=== PATIENT | female | born 1945 | race Caucasian/White ===

== ENCOUNTER 2019-03-27 11:09 | Emergency (ER) | payer MEDICARE ==
[2019-03-27] MEDS ORDERED: Acetaminophen TAB* 325 MG PO ONE (11:19)
[2019-03-27 13:34] VITALS: BP 142/84
--- NOTE | 2019-03-28 06:39 | ED ---
Adult Trauma - HPI Summary HPI Summary: This patient is an otherwise healthy 73-year-old female presenting to the ED after a fall approximately 1 hour YARDER. She states she was walking her dog when she slipped on a wet patch and fell down onto her right side into her bilateral knees. She is currently complaining of bilateral knee pain, right arm pain is notably to the wrist into the upper arm without a bone involvement. Denies hitting her head. Denies any CP or SOB. She desires the use of blood thinners. She states she was able to ambulate following the fall. Denies any signs of trauma. Denies any hip pain. - History of Current Complaint Chief Complaint: EDFall Stated Complaint: FALL PER PT Time Seen by Provider: 03/27/19 11:14 Hx Obtained From: Patient ?: No Mechanism of Injury: Fall Ambulatory at the Scene: Yes Onset/Duration: Started Minutes Ago Onset of Pain: Immediate Onset Severity: Mild Current Severity: Mild Pain Intensity: 3 Pain Scale Used: 0-10 Numeric Location: Extremities Character: Aching Alleviating Factor(s): Nothing Associated Signs & Symptoms: Positive: Negative - Additional Pertinent History Primary Care Physician: BRYSON - Allergy/Home Medications Allergies/Adverse Reactions: Allergies Allergy/AdvReac Type Severity Reaction Status Date / Time Adhesive Tape [Paper Tape] Allergy Unknown Rash Verified 03/27/19 11:10 dabigatran etexilate Allergy Unknown Verified 03/27/19 11:10 [From Pradaxa] Reaction Details latex Allergy Rash And Verified 03/27/19 11:10 Itching lisinopril Allergy Dizziness Verified 03/27/19 11:10 Home Medications: Home Medications Furosemide TAB* [Lasix TAB*] 40 mg PO DAILY 03/27/19 [History Confirmed 03/27/19 ] Warfarin TAB(*) [Coumadin TAB(*)] 2.5 - 5 mg PO DAILY 03/27/19 [History Confirmed 03/27/19] PMH/Surg Hx/FS Hx/Imm Hx Previously Healthy: Yes Endocrine/Hematology History: Reports: Hx Anticoagulant Therapy, Hx Diabetes, Hx Thyroid Disease Cardiovascular History: Reports: Hx Hypercholesterolemia, Hx Hypertension, Hx Valvular Heart Disease, Other Cardiovascular Problems/Disorders - 2011 BY [facility]; 04/10 VALVE REPAIR AND REPLACEMENT Denies: Hx Pacemaker/ICD Respiratory History: Reports: Hx Chronic Obstructive Pulmonary Disease (COPD) Denies: Hx Asthma GI History: Reports: Hx Gall Bladder Disease - removed 8 years ago History: Denies: Hx Renal Disease Musculoskeletal History: Reports: Hx Arthritis - HANDS Sensory History: Reports: Hx Cataracts - left eye, Hx Contacts or Glasses Denies: Hx Hearing Aid Opthamlomology History: Reports: Hx Cataracts - left eye, Hx Contacts or Glasses Neurological History: Denies: Hx Dementia, Hx Seizures Psychiatric History: Denies: Hx Substance Abuse - Surgical History Surgery Procedure, Year, and Place: [place] [facility]. [facility]. 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 CATARACT RIGHT EYE WITH LENS IMPLANT [place] Hx Anesthesia Reactions: No - Immunization History Hx Pertussis Vaccination: No Immunizations Up to Date: Yes Infectious Disease History: No Infectious Disease History: Denies: Hx Hepatitis, Hx Human Immunodeficiency Virus (HIV), Traveled Outside the [place] in Last 30 Days - Family History Known Family History: Positive: Non-Contributory - Social History Occupation: Unemployed Lives: With Family Alcohol Use: None Hx Substance Use: No Substance Use Type: Reports: None Hx Tobacco Use: No Smoking Status (MU): Never Smoked Tobacco Review of Systems Negative: Fever, Chills, Fatigue, Skin Diaphoresis Negative: Palpitations, Chest Pain Negative: Shortness Of Breath, Cough Genitourinary: Negative Positive: no symptoms reported, see HPI Positive: Arthralgia - bilateral knees and R wrist/R humeral pain. Negative: Myalgia Skin: Negative Neurological: Negative All Other Systems Reviewed And Are Negative: Yes Physical Exam Triage Information Reviewed: Yes Vital Signs On Initial Exam: Initial Vitals Temp Pulse Resp BP Pulse Ox 97.6 F 72 20 145/102 99 03/27/19 11:10 03/27/19 11:10 03/27/19 11:10 03/27/19 11:10 03/27/19 11:10 Vital Signs Reviewed: Yes Appearance: Positive: Well-Appearing, Well-Nourished Skin: Positive: Skin Color Reflects Adequate Perfusion Head/Face: Positive: Normal Head/Face Inspection Eyes: Positive: EOMI, TIMUR, Conjunctiva Clear Neck: Positive: Supple, No Lymphadenopathy Respiratory/Lung Sounds: Positive: Clear to Auscultation, Breath Sounds Present Cardiovascular: Positive: Pulses are Symmetrical in both Upper and Lower Extremities Musculoskeletal: Positive: Pain @ - bilateral knees and R wrist/R humeral pain Neurological: Positive: Speech Normal Psychiatric: Positive: Affect/Mood Appropriate AVPU Assessment: Alert - Is Diagnostics - Vital Signs Vital Signs Temp Pulse Resp BP Pulse Ox 03/27/19 13:33 97.8 F 76 16 142/84 98 03/27/19 11:10 97.6 F 72 20 145/102 99 - Laboratory Lab Statement: Any lab studies that have been ordered have been reviewed, and results considered in the medical decision making process. Adult Trauma Course/Dx - Course Course Of Treatment: On arrival into the ED, the patient appears well, however is complaining of bilateral knee pain, right wrist pain and right upper arm pain. She states she remained ambulatory following her fall, however is in a 2/ 10 discomfort. Physical examination, patient is able to flex and extend at all joints including ankles, knees, hip joint, bilateral wrists, elbows and shoulders. He denies any neck pain or headache. Denies hitting her head. No signs of trauma. Slight swelling of the left knee. X-rays obtained of the bilateral knees, right wrist and right humerus, all of which were read as negative for any acute findings. Discussed this with the patient. She states she feels okay for discharge at this time and will follow up with her PCP if needed. She was given tylenol during her course of treatment in the ED. - Diagnoses Differential Diagnosis/HQI/PQRI: Positive: Contusion(s), Sprain, Strain Provider Diagnoses: Fall, Contusion Discharge ED - Sign-Out/Discharge Documenting (check all that apply): Patient Departure Patient Received Moderate/Deep Sedation with Procedure: No - Discharge Plan Condition: Stable Disposition: HOME Patient Education Materials: Contusion in Adults (ED), Knee Pain (ED) Referrals: Session Owen RUSSELL [Primary Care Provider] - Additional Instructions: Take ibuprofen or tylenol as needed for discomfort Ice to the area of concern today Tomorrow you may use heat Please follow up with PCP - Billing Disposition and Condition Condition: STABLE Disposition: Home
== END 2019-03-27 13:33 | disposition home or self-care (01) ==
LOC: ED 11:09
DX: S80.02XA Contusion of left knee, initial encounter (principal); S80.01XA Contusion of right knee, initial encounter; S60.211A Contusion of right wrist, initial encounter; W01.0XXA Fall on same level from slipping, tripping and stumbling without subsequent striking against object, initial encounter; Y93.K1 Activity, walking an animal; Y92.9 Unspecified place or not applicable; M19.021 Primary osteoarthritis, right elbow; M17.0 Bilateral primary osteoarthritis of knee; M89.44 Other hypertrophic osteoarthropathy, hand; E11.9 Type 2 diabetes mellitus without complications; E07.9 Disorder of thyroid, unspecified; E78.00 Pure hypercholesterolemia, unspecified; I10 Essential (primary) hypertension; J44.9 Chronic obstructive pulmonary disease, unspecified; Z95.2 Presence of prosthetic heart valve; Z79.01 Long term (current) use of anticoagulants; Z79.899 Other long term (current) drug therapy; Z88.8 Allergy status to other drugs, medicaments and biological substances; Z91.040 Latex allergy status
CPT/HCPCS: 99281; A9270-GY

== ENCOUNTER 2020-04-19 08:42 | Inpatient (IN) ==
[2020-04-19 09:49] LABS: ABS Lymphocytes 0.7 10^3/ul (1.0-4.8); ABS Monocytes 0.6 10^3/ul (0-0.8); ABS Neutrophils 12.8 10^3/ul (1.5-7.7); Eosinophil % 0.3 %; Hematocrit 34 % (35-47); Hemoglobin 11.4 g/dL (12.0-16.0); Lymphocyte % 4.6 %; Mean Corpuscular HGB Conc 33 g/dL (31-36); Mean Corpuscular Hemoglobin 34 pg (27-31); Mean Corpuscular Volume 103 fL (80-97); Mean Platelet Volume 8.1 fL (7.4-10.4); Platelet Count 230 10^3/uL (150-450); Red Blood Count 3.31 10^6 /uL (3.70-4.87); Red Cell Distribution Width 17 % (10-15); White Blood Count 14.2 10^3/uL (3.5-10.8)
[2020-04-19 09:55] LABS: INR 2.69 (0.82-1.09)
[2020-04-19 10:17] LABS: Albumin 4.1 g/dL (3.2-5.2); Albumin/Globulin Ratio 1.1 (1-3); BUN/Creatinine Ratio 19.4 (8-20); C Reactive Protein 13.42 mg/L (<8.01); Calcium 9.4 mg/dL (8.6-10.3); EGFR African American 63.6 (>60); EGFR Non-African American 52.5 (>60); Globulin 3.9 g/dL (2-4); Potassium 4.2 mmol/L (3.5-5.0); Total Bilirubin 3.5 mg/dL (0.2-1.0)
[2020-04-19 10:19] LABS: Troponin I 0.01 ng/mL (<0.03)
[2020-04-19] MEDS ORDERED: Iodixanol (CONTRAST) 320 MG/ML 100 ML SDV IV ONE ×2 (10:53→20:25)
[2020-04-19 13:17] LABS: Urine Appearance Cloudy; Urine Bilirubin Negative (Negative); Urine Blood Negative (Negative); Urine Color Yellow; Urine Glucose 3+(>=500 mg/dL) (Negative); Urine Ketones Negative (Negative); Urine Nitrite Negative (Negative); Urine Protein 1+(30 mg/dL) (Negative); Urine Specific Gravity 1.036 (1.010-1.030); Urine Urobilinogen Negative (Negative)
[2020-04-19 13:31] LABS: Urine Bacteria 1+ (Absent); Urine Red Blood Cell 2+(6-10/hpf) (Absent); Urine Squamous Epithelial Cell Present (Absent); Urine White Blood Cell 2+(11-20/hpf) (Absent)
[2020-04-19] MEDS ORDERED: Furosemide 40 mg/4 ml IV VIAL IV SLOW PU ONE (14:32)
[2020-04-19] MEDS ORDERED: Dextrose 50% Syringe 50 ml 25 GM/50 ML SYRINGE IV PUSH PRN (14:42)
[2020-04-19] MEDS: cefTRIAXone 1 gm/50 mL NS BAG 1 GM/50 ML BAG IVPB SCH (15:01)
[2020-04-19 15:03] LABS: Indirect Bilirubin 2.8 mg/dL (0.3-1.0)
[2020-04-19] MEDS ORDERED: Furosemide 40 mg/4 ml IV VIAL IV SLOW PU STA (16:54)
[2020-04-19] MEDS ORDERED: fentaNYL 100 mcg/2 ml 50 MCG/ML VIAL IV SLOW PU PRN (18:26)
[2020-04-19] MEDS: Ondansetron 4 mg VIAL 2 MG/ML 2 ml VIAL IV PRN (21:33)
[2020-04-19] MEDS ORDERED: Ondansetron 4 mg VIAL 2 MG/ML 2 ml VIAL ONE (21:34)
[2020-04-19] MEDS ORDERED: Morphine 2 MG/ML SYRINGE IV ONE (22:00)
[2020-04-19 23:00] LABS: TSH Ultra Thyroid Stim Horm 2.76 mcIU/mL (0.34-5.60)
[2020-04-19] MEDS: Nystatin TOP POWDER 15 GM BTL TOPICAL SCH (23:17)
[2020-04-20] MEDS ORDERED: Furosemide 40 mg/4 ml IV VIAL IV SLOW PU ONE (05:12)
[2020-04-20] MEDS ORDERED: Furosemide 40 mg/4 ml IV VIAL ONE (05:52)
[2020-04-20 06:01] LABS: ABS Basophils 0.1 10^3/ul (0-0.2); ABS Eosinophils 0.1 10^3/ul (0-0.6); ABS Lymphocytes 1.2 10^3/ul (1.0-4.8); ABS Monocytes 0.7 10^3/ul (0-0.8); ABS Neutrophils 8.1 10^3/ul (1.5-7.7); Eosinophil % 0.9 %; Hematocrit 32 % (35-47); Hemoglobin 10.4 g/dL (12.0-16.0); Lymphocyte % 12.2 %; Mean Corpuscular HGB Conc 33 g/dL (31-36); Mean Corpuscular Hemoglobin 34 pg (27-31); Mean Corpuscular Volume 104 fL (80-97); Mean Platelet Volume 8.1 fL (7.4-10.4); Platelet Count 205 10^3/uL (150-450); Red Blood Count 3.05 10^6 /uL (3.70-4.87); Red Cell Distribution Width 17 % (10-15); White Blood Count 10.1 10^3/uL (3.5-10.8)
[2020-04-20 06:08] LABS: INR 3.53 (0.82-1.09)
[2020-04-20 06:17] LABS: Albumin 3.6 g/dL (3.2-5.2); BUN/Creatinine Ratio 23.8 (8-20); Calcium 8.8 mg/dL (8.6-10.3); EGFR African American 62.2 (>60); EGFR Non-African American 51.4 (>60); Globulin 3.7 g/dL (2-4); Potassium 4.1 mmol/L (3.5-5.0); Total Bilirubin 2.6 mg/dL (0.2-1.0); Total Protein 7.3 g/dL (6.4-8.9)
[2020-04-20 06:20] LABS: Troponin I 0.01 ng/mL (<0.03)
[2020-04-20] MEDS: Nystatin TOP POWDER 15 GM BTL TOPICAL SCH ×3 (09:12→20:38)
[2020-04-20] MEDS: fentaNYL 100 mcg/2 ml 50 MCG/ML VIAL IV SLOW PU PRN ×3 (09:49→22:34)
[2020-04-20] MEDS ORDERED: Albuterol/Ipratropium NEB.SOL (2.5/0.5 MG) 3 ML NEB.SOLN INH ONE (10:42)
[2020-04-20] MEDS ORDERED: Perflutren Lipid Microsphere 3 ML VIAL ONE (10:49)
[2020-04-20] MEDS ORDERED: Warfarin per PHARMACY **NOTE FOLLOW UP SCH (11:00)
[2020-04-20] MEDS: cefTRIAXone 1 gm/50 mL NS BAG 1 GM/50 ML BAG IVPB SCH (14:56)
[2020-04-20] MEDS ORDERED: Warfarin - No Order Today **NOTE FOLLOW UP SCH (17:00)
[2020-04-20] MEDS: Warfarin DAILY REMINDER **NOTE FOLLOW UP SCH (17:01)
[2020-04-21 04:41] LABS: INR 3.65 (0.82-1.09)
[2020-04-21 05:25] LABS: BUN/Creatinine Ratio 31.6 (8-20); Calcium 8.3 mg/dL (8.6-10.3); EGFR African American 67.3 (>60); EGFR Non-African American 55.6 (>60)
[2020-04-21] MEDS: Nystatin TOP POWDER 15 GM BTL TOPICAL SCH ×3 (08:53→20:43)
[2020-04-21] MEDS: fentaNYL 100 mcg/2 ml 50 MCG/ML VIAL IV SLOW PU PRN ×3 (09:01→13:50)
[2020-04-21] MEDS ORDERED: Warfarin - No Order Today **NOTE FOLLOW UP ONE (10:00)
[2020-04-21] MEDS ORDERED: Polyethylene Glycol 3350 17 GM PACKET PO PRN (10:12)
[2020-04-21] MEDS: Furosemide 40 mg/4 ml IV VIAL IV SLOW PU SCH (12:33)
[2020-04-21] MEDS: cefTRIAXone 1 gm/50 mL NS BAG 1 GM/50 ML BAG IVPB SCH (15:02)
[2020-04-21] MEDS: Warfarin DAILY REMINDER **NOTE FOLLOW UP SCH (17:43)
[2020-04-21 18:05] LABS: Folate 10.75 ng/mL (>3.99)
[2020-04-22] MEDS: fentaNYL 100 mcg/2 ml 50 MCG/ML VIAL IV SLOW PU PRN ×2 (00:04→02:52)
[2020-04-22] MEDS: Ondansetron 4 mg VIAL 2 MG/ML 2 ml VIAL IV PRN (03:37)
[2020-04-22 04:48] LABS: INR 2.68 (0.82-1.09)
[2020-04-22 04:51] LABS: BUN/Creatinine Ratio 38.4 (8-20); Calcium 8.6 mg/dL (8.6-10.3); EGFR African American 78.3 (>60); EGFR Non-African American 64.7 (>60); Magnesium 2.2 mg/dL (1.9-2.7); Potassium 4.2 mmol/L (3.5-5.0)
[2020-04-22] MEDS: Nystatin TOP POWDER 15 GM BTL TOPICAL SCH (08:49)
[2020-04-22] MEDS: Furosemide 40 mg/4 ml IV VIAL IV SLOW PU SCH (08:49)
[2020-04-22] MEDS ORDERED: Morphine 2 MG/ML SYRINGE IV PRN (09:31)
[2020-04-22 12:16] VITALS: BP 150/81
== END 2020-04-22 13:16 | disposition short-term general hospital (02) | DRG 291 ==
LOC: ED 08:42 → ICU 15:32
PROVIDERS: ADMIT Internal Medicine Critical Care Medicine; ATTEND Internal Medicine Critical Care Medicine